=== PATIENT | female | born 1985 | race Caucasian/White ===

== ENCOUNTER 2019-05-14 09:53 | Outpatient (CLI) | payer OTHER, SELFPAY ==
--- NOTE | 2019-05-14 10:04 | MM_ITS ---
WS: [id number] DIAGNOSTIC BILATERAL DIGITAL MAMMOGRAM WITH CAD RIGHT breast ultrasound, limited HISTORY: RT BREAST LUMP 5 O'CLOCK COMPARISON: 04/26/2018 and 02/16/2017 TECHNIQUE: Bilateral craniocaudad, mediolateral oblique, and mediolateral views are submitted. Spot c ompression RIGHT CC. Computer aided detection utilized. Breast composition: There are scattered areas of fibroglandular density. Stable mass in the medial RI GHT breast. There is a lucent notch suggesting this may be a lymph node. Mass is stable in size since 02/16/2017. No additional suspicious findings. RIGHT breast ultrasound, limited. Ultrasound directed to the 4-5 o'clock axis. There is a hypoechoic mass with a central notch measurin g 1.4 x 0.6 cm. Likely representing a lymph node or benign fibroadenoma. No increase in size. MM/[id number] IMPRESSION: BI-RADS: 2-Benign FOLLOW UP: Age 41 Long-term stability of the mass in the medial RIGHT breast. Favor this is proba monserrat a lymph node.
--- NOTE | 2019-05-14 10:36 | US_ITS ---
WS: [id number] DIAGNOSTIC BILATERAL DIGITAL MAMMOGRAM WITH CAD RIGHT breast ultrasound, limited HISTORY: RT BREAST LUMP 5 O'CLOCK COMPARISON: 04/26/2018 and 02/16/2017 TECHNIQUE: Bilateral craniocaudad, mediolateral oblique, and mediolateral views are submitted. Spot c ompression RIGHT CC. Computer aided detection utilized. Breast composition: There are scattered areas of fibroglandular density. Stable mass in the medial RI GHT breast. There is a lucent notch suggesting this may be a lymph node. Mass is stable in size since 02/16/2017. No additional suspicious findings. RIGHT breast ultrasound, limited. Ultrasound directed to the 4-5 o'clock axis. There is a hypoechoic mass with a central notch measurin g 1.4 x 0.6 cm. Likely representing a lymph node or benign fibroadenoma. No increase in size. US/US breast RT limited* [id number] IMPRESSION: BI-RADS: 2-Benign FOLLOW UP: Age 41 Long-term stability of the mass in the medial RIGHT breast. Favor this is proba monserrat a lymph node.
== END 2019-05-14 09:54 | disposition home or self-care (01) ==
LOC: RADSHAW 09:56
PROVIDERS: Family Provider Family Medicine; PCP Family Medicine; Visit Provider Family Medicine
DX: N63.14 Unspecified lump in the right breast, lower inner quadrant (principal)
CPT/HCPCS: 76642; 77066

== ENCOUNTER 2020-05-15 10:43 | Outpatient (CLI) | payer OTHER, SELFPAY ==
--- NOTE | 2020-05-15 10:48 | MM_ITS ---
WS: [id number] BILATERAL SCREENING DIGITAL MAMMOGRAM WITH CAD HISTORY: SCREENING COMPARISON: 05/14/2019, 04/26/2018 and 02/16/2017 Bilateral CC and MLO views submitted. Computer aided detection analyzed. Breast composition: There are scattered areas of fibroglandular density. No suspicious masses, microc alcifications or architectural distortion. Stable 15 mm nodule in the RIGHT breast near 5:00. No inte rval increase in size since 2017. MM/[id number] IMPRESSION: BI-RADS: 2-Benign FOLLOW UP: 1 Year Follow-up
== END 2020-05-15 10:44 | disposition home or self-care (01) ==
LOC: RADSHAW 10:46
PROVIDERS: PCP Family Medicine; Visit Provider Nurse Practitioner Family
DX: Z12.31 Encounter for screening mammogram for malignant neoplasm of breast (principal)
CPT/HCPCS: 77067

== ENCOUNTER → 2021-09-20 11:54 | Outpatient (BNVA) | payer OTHER, SELFPAY | PROVIDERS: PCP Family Medicine; Visit Provider Registered Nurse Neonatal Intensive Care | DX: N39.0 Urinary tract infection, site not specified (principal) | CPT/HCPCS: 81000 ==

== ENCOUNTER → 2021-09-26 14:07 | Outpatient (BNVA) | payer OTHER, SELFPAY | PROVIDERS: PCP Family Medicine; Visit Provider Family Medicine Adult Medicine | DX: N39.0 Urinary tract infection, site not specified (principal) | CPT/HCPCS: 87086 ==

== ENCOUNTER 2022-04-16 13:36 | Outpatient (CLI) | payer OTHER, SELFPAY ==
--- NOTE | 2022-04-16 14:13 | ECG_ITS ---
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 Measurements Intervals [place] Rate: 107 P: 56 WY: 148 QRS: -3 QRSD: 94 T: 31 QT: 344 QTc: 459 Interpretive Statements SINUS TACHYCARDIA POSSIBLE ANTERIOR MYOCARDIAL INFARCTION , PROBABLY OLD [30 ms Q WAVE IN V3/V4, OR R < 0.2 mV IN V4] No previous ECG available for comparison Electronically Signed On 04-16-2022 14:40:44 PYROGLAZER by Raheel Au M.D. [email or web address] daughters medical centerWasatch Microfluidicsholmes county [facility].[employer]/store/NU/[id number] escoto
== END 2022-04-16 13:37 | disposition home or self-care (01) ==
LOC: RAD 13:38
PROVIDERS: PCP Family Medicine; Visit Provider Family Medicine
DX: R07.9 Chest pain, unspecified (principal); R00.0 Tachycardia, unspecified
CPT/HCPCS: 93005

== ENCOUNTER 2022-04-21 09:04 | Outpatient (CLI) | payer OTHER, SELFPAY ==
--- NOTE | 2022-04-21 | US_ITS ---
WS: [id number] RIGHT UPPER QUADRANT ULTRASOUND HISTORY: EPIGASTRIC PAIN COMPARISON: CT abdomen 04/19/2018 Liver: 19.0 cm in length. Moderately enlarged liver. Mild diffuse hepatic steatosis. The entire liver is not well visualized due to body habitus. No mass identified. No bile duct dilatation Portal Vein: Not visualized well. Gallbladder: Poorly visualized gallbladder due to body habitus. There are low level echoes within the gallbladder which may be artifact. No stones or shadowing. The gallbladder wall is normal. No Hoang 's sign during this examination. CBD: 0.7 cm, common bile duct is very mildly dilated. Only a very small portion of the common bile du ct is visualized. Common bile duct at the pancreatic head is not visualized. Pancreas: Limited. Pancreatic head and tail of the pancreas are not well visualized. Right kidney: 11.8 cm in length. Normal size and echogenicity. No hydronephrosis or mass. Aorta and IVC: Unremarkable abdominal aorta and IVC. No ascites. US/US abdomen limited [id number] IMPRESSION: 1. Quality of this examination is moderately limited by body habitus. 2. Low-level echoes in the gallbladder may be artifact related to body habitus or sludge. No stones or shadowing identified. 3. Mildly dilated common bile duct. Only a small portion of the common bile du ct is identified. Reasonably mild common bile duct dilatation is to be evaluate d. Common bile duct is normal caliber on the prior CT from 2019. Recommend foll ow-up CT abdomen and pelvis with IV and oral contrast. This will help define th e pancreatic head better. MRCP may be of value also. 4. Moderate hepatomegaly and hepatic steatosis.
== END 2022-04-21 09:05 | disposition home or self-care (01) ==
LOC: RAD 09:04
PROVIDERS: PCP Family Medicine; Visit Provider Family Medicine
DX: R10.13 Epigastric pain (principal); K83.8 Other specified diseases of biliary tract; K76.0 Fatty (change of) liver, not elsewhere classified
CPT/HCPCS: 76705

== ENCOUNTER 2022-04-27 20:21 | Observation (INO) | payer OTHER, SELFPAY ==
--- NOTE | 2022-04-27 20:24 | ECG_ITS ---
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 Measurements Intervals [place] Rate: 107 P: 66 WV: 157 QRS: 2 QRSD: 86 T: 40 QT: 332 QTc: 444 Interpretive Statements SINUS TACHYCARDIA LOW QRS VOLTAGE IN PRECORDIAL LEADS [QRS DEFLECTION < 1.0 mV IN CHEST LEADS] POSSIBLE ANTERIOR MYOCARDIAL INFARCTION , PROBABLY OLD [30 ms Q WAVE IN V3/V4, OR R < 0.2 mV IN V4] Compared to ECG 04/16/2022 14:01:53 Low QRS voltage now present Myocardial infarct finding still present Electronically Signed On 04-28-2022 1:51:59 OIL SPREADER OPERATOR by Camille Gamboa M.D. [email or web address].[employer]/store/NU/[id number] f
--- NOTE | 2022-04-27 20:24 | XRR_ITS ---
PROCEDURE INFORMATION: Exam: XR Chest Exam date and time: 04/27/2022 8:34 PM Age: 37 years old Clinical indication: Left-sided and other: Epigastric left upper gastric pain; Additional info: Chest pain TECHNIQUE: Imaging protocol: Radiologic exam of the chest. Views: 1 view. COMPARISON: CT abdomen pelvis con [id number] 04/19/2018 1:41 AM FINDINGS: Lungs: Unremarkable. No consolidation. Pleural spaces: Unremarkable. No pleural effusion. No pneumothorax. Heart/Mediastinum: Unremarkable. No cardiomegaly. Bones/joints: No acute findings. XR/XR chest 1V portable [id number] IMPRESSION: No acute findings.
[2022-04-27 20:31] VITALS: BP 174/120; PULSE 107; RESP 20; TEMP 36.7; O2SAT 100; BMI 48.6
[2022-04-27 20:39] LABS: Basophils # 0.1 10^3/uL (0.0-0.1); Basophils % 0.4 %; Eosinophils # 0.3 10^3/uL (0.0-0.8); Eosinophils % 2.1 %; Hematocrit 43.1 % (37.0-47.0); Hemoglobin 14.4 g/dL (11.5-15.3); Lymphocytes # 4.4 10^3/uL (0.8-4.8); Mean Corpuscular HGB Conc 33.4 g/dL (30.0-36.0); Mean Corpuscular Volume 86.7 fl (81-99); Mean Platelet Volume 9.1 fL (7.4-10.4); Monocytes # 0.9 10^3/uL (0.2-0.9); Monocytes % 6.2 %; Neutrophils # 8.12 10^3/uL (1.8-7.7); Nucleated Red Blood Cells % 0 %; Platelet Count 371 10^3/cmm (130-400); Red Blood Count 4.97 10^6/uL (4.1-5.3); Red Cell Distribution Width 12.1 % (12.1-15.1); White Blood Count 13.8 10^3/uL (4.0-10.0)
--- NOTE | 2022-04-27 20:41 | CTR_ITS ---
PROCEDURE INFORMATION: Exam: CTA Chest With Contrast Exam date and time: 04/27/2022 9:06 PM Age: 37 years old Clinical indication: Abdominal pain; Acute; Right-sided; Prior surgery; Surgery date: 6+ months; Surgery type: Appx; Additional info: Cp/abd pain TECHNIQUE: Imaging protocol: Computed tomographic angiography of the chest with contrast. 3D rendering (Not supervised by radiologist): MIP and/or 3D reconstructed images were created by the technologist. Radiation optimization: All CT scans at this facility use at least one of these dose optimization techniques: automated exposure control; mA and/or kV adjustment per patient size (includes targeted exams where dose is matched to clinical indication); or iterative reconstruction. Contrast material: OMNIPAQUE 350; Contrast volume: 95 ml; Contrast route: INTRAVENOUS (IV); Other protocol: This patient has received 0 known CTs and 0 known cardiac nuclear medicine studies in the 12 months prior to the current study. COMPARISON: CR (CHEST, ) 04/27/2022 8:34 PM and abdomen pelvic CT from March 2018 RADIATION DOSE METRICS: Total DLP (mGy-cm): 1986.58 FINDINGS: Pulmonary arteries: Normal. No pulmonary emboli. Aorta: No aortic aneurysm. No aortic dissection. Lungs: Peripheral mild scarring suggested in the right lung. No consolidation. Pleural spaces: No pneumothorax. No pleural effusion. Heart: No cardiomegaly. No pericardial effusion. Coronary arteries: Mild coronary arterial calcifications are noted. Lymph nodes: No enlarged lymph nodes. Bones/joints: Surgical changes are suggested at right glenoid. No acute bony findings. Soft tissues: Lesion at lower right breast is unchanged dating back at least to 2019. PROCEDURE INFORMATION: Exam: CT Abdomen And Pelvis With Contrast Exam date and time: 04/27/2022 9:06 PM Age: 37 years old Clinical indication: Abdominal pain; Acute; Right-sided; Prior surgery; Surgery date: 6+ months; Surgery type: Appx; Additional info: Cp/abd pain TECHNIQUE: Imaging protocol: Computed tomography of the abdomen and pelvis with contrast. Radiation optimization: All CT scans at this facility use at least one of these dose optimization techniques: automated exposure control; mA and/or kV adjustment per patient size (includes targeted exams where dose is matched to clinical indication); or iterative reconstruction. Contrast material: OMNIPAQUE 350; Contrast volume: 95 ml; Contrast route: INTRAVENOUS (IV); Other protocol: This patient has received 0 known CTs and 0 known cardiac nuclear medicine studies in the 12 months prior to the current study. COMPARISON: CT abdomen pelvis wo con [id number] 04/19/2018 1:41 AM RADIATION DOSE METRICS: Total DLP (mGy-cm): 1986.58 FINDINGS: Tubes, catheters and devices: Circular device suggested within the vagina can be correlated with device placement history. Liver: Normal. No mass. Gallbladder and bile ducts: Gallbladder wall thickening is suspected. No evident calcified stones. Pancreas: Normal. No ductal dilation. Spleen: Normal. No splenomegaly. Adrenal glands: Normal. No mass. Kidneys and ureters: Normal. No hydronephrosis. Stomach and bowel: Unremarkable. No obstruction. No mucosal thickening. Appendix: No evidence of appendicitis. Intraperitoneal space: Unremarkable. No free air. No significant fluid collection. Vasculature: Unremarkable. No abdominal aortic aneurysm. Lymph nodes: Unremarkable. No enlarged lymph nodes. Urinary bladder: Unremarkable as visualized. Reproductive: Unremarkable as visualized. Bones/joints: No acute fracture. Soft tissues: Small fatty umbilical hernia. CT/CT angio chest w abd pel w con IMPRESSION: No acute findings. IMPRESSION: Findings suggestive of some thickening of the gallbladder wall ; ultrasonography may be helpful in further evaluation. Additional details as above.
[2022-04-27 20:44] VITALS: BP 150/89; PULSE 104; RESP 19; O2SAT 98
--- NOTE | 2022-04-27 20:52 | W.ED.CHESTPA ---
HPI - Chest Pain General: Chief Complaint: Chest Pain Stated Complaint: chest pain, left upper quadrant pain Time Seen by Provider: 04/27/22 20:23 Source: patient Mode of arrival: ambulatory Limitations: no limitations History of Present Illness: 37-year-old female has been having some epigastric abdominal pain over the last 3 to 4 weeks she had an ultrasound follow-up with the surgeon and is trying to get a HIDA scan scheduled states that tonight though roughly 4 to 5 hours ago started having left upper quadrant pain along with some chest pains with dyspnea. She states pain is sharp in nature rates it as 7 out of 10 denies any worsening proving factors denies any fevers denies any vomiting or diarrhea. Associated symptoms: Reports abdominal pain; Deny dyspnea or fever(s) Review of Systems Const: Denies: fever(s), chills, body aches or change in appetite Eyes: Denies: blurry vision or eye discomfort ENMT: Denies: throat pain or dental pain Card: Reports: chest pain Resp: Denies: dyspnea GI: Reports: abdominal pain : Denies: dysuria Musc: Denies: neck pain or back pain Skin/Breast: Denies: rash Neuro: Denies: headache(s) Psych: Denies: depression Hasmukh/Lymph: Denies: easy bruising All/Imm: Denies: urticaria PFSH ED PFSH: Medical History Factor 5 Leiden mutation, heterozygous Hypertension Hypertension Obesity Surgical History History of laparoscopic appendectomy open appy 1998 History of shoulder surgery Family History Other Factor 5 Leiden mutation, heterozygous Hyperlipidemia Hypertension Denies family history of CAD (coronary artery disease) Cancer Social History Smoking and tobacco status: never smoked Second hand smoke exposure: No Alcohol intake: never Physical Exam Const: COMMON NORMALS: no acute distress, patient oriented x3 and healthy appearing HENMT: COMMON NORMALS: normocephalic and atraumatic HEAD & SCALP: normocephalic and atraumatic Eye: COMMON NORMALS: Equal, round and reactive pupils present and EOMs intact bilaterally PUPIL: Yes Equal, round and reactive pupils present Neck/C-Spine: COMMON NORMALS: full ROM and supple Chest: COMMONS NORMALS: normal inspection of the chest and normal palpation of entire chest wall Resp: COMMON NORMALS: normal respiratory effort, No retractions, No use of accessory muscles and clear to auscultation bilaterally AUSCULTATION: clear to auscultation bilaterally Cardio: COMMON NORMALS: regular rate, regular rhythm and No murmurs present (Cardio) RATE: regular rate RHYTHM: regular rhythm GI: COMMON NORMALS: Normal to inspection, nondistended, normoactive bowel sounds present, Soft to palpation and no masses PALPATION: Yes Soft to palpation and Yes Tenderness to palpation present (GI) Details: RUQ Extremity: COMMON NORMALS: normal to inspection and full ROM Neuro: COMMON NORMALS: patient oriented x3, moves all extremities and no focal motor deficits Psych: COMMON NORMALS: mental status grossly normal, Normal thought process present and cooperative THOUGHT PROCESS: Normal thought process present Skin: COMMON NORMALS: no rashes or lesions noted and no wounds GENERAL SKIN EXAM: no rashes or lesions noted Course Vital Signs: Vital signs: Vital Signs Temperature 98.0 F 04/27/22 20:31 Pulse Rate 101 H 04/27/22 21:31 Respiratory Rate 22 H 04/27/22 21:31 Blood Pressure 141/98 04/27/22 21:31 Pulse Oximetry 98 04/27/22 21:31 Oxygen Delivery Me thod 04/27/22 21:31 MDM - Chest Pain Medical Decision Making Patient presents with abdominal pain CT scan did show thickened gallbladder wall she does have an elevated white count with tenderness consistent with a cholecystitis I did speak to her surgeon that she has been following with will admit at this time on IV antibiotics for plan for cholecystectomy in the morning. Lab Data 04/27/22 20:29 04/27/22 20:29 Radiology Impressions Chest X-Ray 04/27/22 20:24 IMPRESSION: No acute findings. Chest/Abdomen/Pelvis CT 04/27/22 20:41 IMPRESSION: No acute findings. IMPRESSION: Findings suggestive of some thickening of the gallbladder wall ; ultrasonography may be helpful in further evaluation. Additional details as above. Laboratory Results WBC 13.8 10^3/uL (4.0-10.0) H 04/27/22 20: RBC 4.97 10^6/uL (4.1-5.3) 04/27/22 20: Hgb 14.4 g/dL (11.5-15.3) 04/27/22 20: Hct 43.1 % (37.0-47.0) 04/27/22: MCV 86.7 fl (81-99) 04/27/22 20: MCH 29.0 pg (28.0-34.0) 04/27/22: MCHC 33.4 g/dL (30.0-36.0) 04/27/22: RDW 12.1 % (12.1-15.1) 04/27/22: Plt Count 371 10^3/cmm (130-400) 04/27/22: MPV 9.1 fL (7.4-10.4) 04/27/22: Neut % (Auto) 59.0 % 04/27/22: Lymph % (Auto) 32.0 % 04/27/22: Spink % (Auto) 6.2 % 04/27/22: Eos % (Auto) 2.1 % 04/27/22: Baso % (Auto) 0.4 % 04/27/22: Neut # (Auto) 8.12 10^3/uL (1.8-7.7) H 04/27/22: Lymph # (Auto) 4.4 10^3/uL (0.8-4.8) 04/27/22: Spink # (Auto) 0.9 10^3/uL (0.2-0.9) 04/27/22: Eos # (Auto) 0.3 10^3/uL (0.0-0.8) 04/27/22: Baso # (Auto) 0.1 10^3/uL (0.0-0.1) 04/27/22: Nucleated RBC % (auto) 0 % 04/27/22: Nucleated RBCs # 0.0 /100WBC 01/31/23 20:29 Sodium 140 mmol/L (136-145) 04/27/22 20:29 Potassium 3.9 mmol/L (3.5-5.1) 04/27/22 20: Chloride 105 mmol/L (98-107) 04/27/22 20: Carbon Dioxide 24 mmol/L (22-29) 04/27/22 20: Anion Gap 14.9 (5-19) 04/27/22 20: BUN 11 mg/dL (6-20) 04/27/22 20: Creatinine 0.7 mg/dL (0.5-0.9) 04/27/22 20: GFR Calculation 94.7 mL/min (90-130) 04/27/22 20: Glucose 110 mg/dL (65-115) 04/27/22 20: Calculated Osmolality 290 mOsm/kg (285-295) 04/27/22 20: Calcium 9.4 mg/dL (8.5-10.5) 04/27/22 20: Total Bilirubin 0.3 mg/dL (0.15-1.2) 04/27/22 20: AST 12 U/L (0-32) 04/27/22 20: ALT 13 U/L (0-33) 04/27/22 20: Alkaline Phosphatase 84 U/L (35-105) 04/27/22 20:29 Troponin T Baseline 6 ng/L (0-10) 04/27/22 20: Troponin T 120 Minute 6.00 ng/L (0-10) 04/27/22 22:14 Delta Troponin T 0 ABS# (0-10) 04/27/22 22:14 Total Protein 7.3 g/dL (6.6-8.7) 04/27/22 20: Albumin 4.0 g/dL (3.5-5.2) 04/27/22 20: Globulin 3.3 g/dL (1.3-4.6) 04/27/22 20: Lipase 35 U/L (13-60) 04/27/22 20:29 HCG, Qual Negative (Negative) 04/27/22 20:29 Urine Color Yellow (Yellow) 04/27/22 21:25 Urine Appearance Clear (CLEAR) 04/27/22 21:25 Urine pH 5 (5-7) 04/27/22 21:25 Ur Specific [place] 1.020 (1.005-1.030) 04/27/22 21:25 Urine Protein Neg (Negative) 04/27/22 21:25 Urine Glucose (UA) Norm (Normal) 04/27/22 21:25 Urine Ketones 1+ (Negative) H 04/27/22 21:25 Urine Blood Neg (Negative) 04/27/22 21:25 Urine Nitrate Negative (Negative) 04/27/22 21:25 Urine Bilirubin Neg (Negative) 04/27/22 21:25 Urine Urobilinogen Norm mg/dL (Negative) 04/27/22 21:25 Ur Leukocyte Esterase 1+ (Negative) H 04/27/22 21:25 Urine RBC 0-4 /hpf (0-2) H 04/27/22 21:25 Urine WBC 5-10 /hpf (0-5) H 04/27/22 21:25 Ur Squamous Epith Cells 5-10 /hpf (0-5) H 04/27/22 21:25 Amorphous Sediment Not Reportable 04/27/22 21:25 Urine Bacteria 1+ /hpf (NONE) H 04/27/22 21:25 Hyaline Casts 0-4 /lpf H 04/27/22 21:25 Discharge Plan Discharge Patient Disposition: Admitted As Inpatient Admit Provider: Melo Salinas Clinical Impression: Cholecystitis Condition: Stable Coding Level of Care Code ED Printing Table Hand for Shanig Fwd Exam Comprehensive
[2022-04-27 21:02] LABS: Alanine Aminotransferase 13 U/L (0-33); Alkaline Phosphatase 84 U/L (35-105); Anion Gap 14.9 (5-19); Aspartate Amino Transferase 12 U/L (0-32); Blood Urea Nitrogen 11 mg/dL (6-20); Calcium 9.4 mg/dL (8.5-10.5); Carbon Dioxide 24 mmol/L (22-29); Chloride 105 mmol/L (98-107); Globulin 3.3 g/dL (1.3-4.6); Glomerular Filtration Rate 94.7 mL/min (90-130); Glucose 110 mg/dL (65-115); Lipase 35 U/L (13-60); Osmolality Calculated 290 mOsm/kg (285-295); Potassium 3.9 mmol/L (3.5-5.1); Sodium 140 mmol/L (136-145); Total Bilirubin 0.3 mg/dL (0.15-1.2); Total Protein 7.3 g/dL (6.6-8.7)
[2022-04-27 21:04] LABS: Troponin(5th) Baseline 6 ng/L (0-10)
[2022-04-27 21:21] LABS: HCG, Serum Qual Negative (Negative)
[2022-04-27] MEDS: ondansetron 2 mg/ML SDV 2 mL 4 MG IVP (21:23)
[2022-04-27 21:24] VITALS: RESP 21
[2022-04-27] MEDS: HYDROmorphone 1 mg/mL INJ 1 mL IVP (21:24)
[2022-04-27 21:31] VITALS: BP 141/98; PULSE 101; RESP 22; O2SAT 98
[2022-04-27] MEDS: iohexol 350 mg/mL 500 mL Btl (per mL) IV (21:33)
[2022-04-27 21:58] LABS: Urine Appearance Clear (CLEAR); Urine Color Yellow (Yellow); pH Urine 5 (5-7)
[2022-04-27 21:59] LABS: Add Urine Microscopic? YES; Bilirubin Urine Neg (Negative); Blood Urine Neg (Negative); Glucose Urine UA Norm (Normal); Ketones Urine 1+ (Negative); Leukocyte Esterase Urine 1+ (Negative); Nitrate Urine Negative (Negative); Protein Urine Neg (Negative); Urobilinogen Urine Norm (Negative)
[2022-04-27 22:11] LABS: Add Urine Culture? No; Bacteria Urine 1+ /hpf; Hyaline Casts Urine 0-4 /lpf; RBC Urine 0-4 /hpf (0-2)
[2022-04-27] MEDS: piperacillin-tazobactam 3.375 GM in sodium chloride 0.9% (plus) 50 ML IV (22:42)
[2022-04-27 23:23] LABS: Troponin 5 2HR Delta 0 ABS# (0-10)
[2022-04-27 23:30] VITALS: BP 119/85; PULSE 90; RESP 18; TEMP 36.7; O2SAT 96
--- NOTE | 2022-04-27 23:37 | ECG_ITS ---
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 Measurements Intervals [place] Rate: 86 P: -15 NE: 118 QRS: -23 QRSD: 90 T: -25 QT: 358 QTc: 429 Interpretive Statements SINUS RHYTHM WITH SHORT NE INTERVAL POSSIBLE ANTERIOR MYOCARDIAL INFARCTION , OF INDETERMINATE AGE [30 ms Q WAVE IN V3/V4, OR R < 0.2 mV IN V4] Compared to ECG 04/27/2022 20:27:41 Short NE interval now present Sinus tachycardia no longer present Myocardial infarct finding still present Electronically Signed On 04-28-2022 1:57:08 HYDROMETEOROLOGY TEACHER by Camille Gamboa M.D. [id number]
[2022-04-27] MEDS: sodium chloride 0.9% 1,000 ML 100 ML IV (23:43)
[2022-04-28] VITALS (21 sets, daily range): BP systolic 108–185; BP diastolic 71–99; PULSE 80–105; RESP 15–22; TEMP 36.1–36.9; O2SAT 91–100
--- NOTE | 2022-04-28 02:24 | ECG_ITS ---
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 Measurements Intervals [place] Rate: 89 P: 148 WV: 159 QRS: -23 QRSD: 93 T: 120 QT: 374 QTc: 455 Interpretive Statements ECTOPIC ATRIAL RHYTHM POSSIBLE LEFT ATRIAL ENLARGEMENT [-0.1mV P-WAVE IN V1/V2] LOW QRS VOLTAGE IN PRECORDIAL LEADS [QRS DEFLECTION < 1.0 mV IN CHEST LEADS] POSSIBLE ANTERIOR MYOCARDIAL INFARCTION , PROBABLY OLD [30 ms Q WAVE IN V3/V4, OR R < 0.2 mV IN V4] Compared to ECG 04/27/2022 23:37:53 Ectopic atrial rhythm now present Low QRS voltage now present Sinus rhythm no longer present Short [place] interval no longer present Myocardial infarct finding still present Electronically Signed On 04-28-2022 16:33:47 YARROW GATHERER by Raheel Au M.D. [id number]
[2022-04-28 04:01] LABS: Troponin 5 6HR Delta 0 ng/L (0-12)
[2022-04-28] MEDS: piperacillin-tazobactam 3.375 GM in sodium chloride 0.9% (plus) 50 ML IV (04:41)
--- NOTE | 2022-04-28 09:52 | PM.HP ---
Providers/Chief Complaint Admitting Physician: Melo Salinas DO Primary Care Provider: Arvind Rogers MD Chief Complaint: chest pain, left upper quadrant pain History of Present Illness Christiana Wilson is a 37 year old female who presented to the hospital with increased upper abdominal pain. For the last month she has been having left upper quadrant and right upper quadrant cramping abdominal pain that radiates to her back after eating. This is associated with nausea and sometimes emesis. She gets diarrhea at times but denies any constipation. Denies any hematochezia and/or melena. CT abdomen showed thickened gallbladder wall Review of Systems General: Reports: 10 or more systems reviewed and unremarkable except in HPI and below Medications/Allergies Home Medications Medication Instructions Recorded Confirmed Last Taken Type olmesartan 20 mg tablet 20 mg PO DAILY 04/27/22 04/27/22 Unknown History semaglutide 0.25 mg or 0.5 mg (2 1 mg SUBCUT .weekly 04/27/22 04/27/22 Unknown History mg/1.5 mL) subcutaneous pen injector (Ozempic) Allergies Allergy/AdvReac Type Severity Reaction Status Date / Time meperidine [From Demerol] Allergy Intermediate ADR-Agitate Verified 04/21/22 10:22 d PFSH Acute PFSH: Medical History Factor 5 Leiden mutation, heterozygous Hypertension Hypertension Obesity Surgical History History of laparoscopic appendectomy open appy 1998 History of shoulder surgery Family History Other Factor 5 Leiden mutation, heterozygous Hyperlipidemia Hypertension Denies family history of CAD (coronary artery disease) Cancer Social History Smoking and tobacco status: never smoked Second hand smoke exposure: No Alcohol intake: never Vitals/I&O/Wt Last Vital Signs Temp 98.2 F 04/28/22 09:49 Pulse 100 04/28/22 09:49 Resp 18 04/28/22 09:49 BP 110/75 04/28/22 07:16 Pulse Ox 99 04/28/22 09:49 O2 Del Method 04/28/22 09:49 04/27/22 04/28/2204/28/23 22:59 06:59 14:59 Intake Total 100 / 100 Balance 100 / 100 Weight last 48 hrs Weight 320 lb Physical Exam Narrative: General : Patient is well developed , no acute distress, oriented x3 Head : Normal cephalic, a-traumatic. Ears : Pinnae and external canal are normal. Hearing is normal. Eyes : PERRLA, Sclera and injection are normal. No conjunctival discharge. Nose : Mucous membranes are without erythema. Throat : buccal mucosa is normal, gums are without significant recession or hypertrophy. Lungs : Equal chest rise bilaterally, no use of accessory muscles, trachea is midline. Cor : Rate and rhythm are normal. Abdomen : Soft, nondistended, tender palpation right upper quadrant, negative Hoang's, no g/r/m Extremities : No edema, no cyanosis or clubbing, dorsalis pedis pulses are present bilaterally, non-tender to palpation of calves. Upper extremities are normal bilaterally. Back : non-tender to palpation, no CVA tenderness. Neuro : CN II - XII intact, Upper and lower extremities have equal and full strength Data 04/27/22 20:29 04/27/22 20:29 A&P Assessment and plan (1) Cholecystitis: Plan Laparoscopic cholecystectomy The risks and benefits of the procedure, including but not limited to, bleeding, infection, scar, numbness, pain, damage to surrounding structures, damage to common bile duct requiring additional surgery, conversion to an open procedure, were explained to the patient. He is understanding of the risks and wishes to proceed. Attestations Medical Necessity Statement*: Patient will require 1 night in the hospital following cholecystectomy Coding Level of Care Code Acute Code for [facility] Diagnoses Cholecystitis K81.9
[2022-04-28] MEDS: sodium chloride 0.9% 1,000 ML 30 ML IV (10:15)
[2022-04-28] MEDS: ondansetron 2 mg/ML SDV 2 mL 4 MG IVP ×2 (10:16→11:46)
[2022-04-28] MEDS: scopolamine 1.5 Patch 1 PATCH TRANSDERMA (10:16)
[2022-04-28] MEDS: diphenhydrAMINE 50 mg/mL SDV 1mL 12.5 MG IVP ×2 (10:17→11:43)
--- NOTE | 2022-04-28 11:04 | SUR.OPER ---
UPDATED SPOUSE VIA CELL PHONE [phone]
--- NOTE | 2022-04-28 11:11 | ANES.PREANE2 ---
Pre-Anesthetic Assessment Height/Weight: Height 1.73 m Weight 145.15 kg Temp Pulse Resp BP Pulse Ox O2 Del Method 98.2 F 100 18 110/75 99 04/28/22 09:49 04/28/22 09:49 04/28/22 09:49 04/28/22 07:16 04/28/22 09:49 04/28/22 09:49 Operation Date: 04/28/22 10:00 Proposed Procedures p Laparoscopic Cholecystectomy(Not Applicable) - Melo Salinas DO Familial anesthetic complications: PONV Was Beta Maylin taken within 24 hours: N/A Was Clonidine taken within 24 hours: N/A Last intake: Intake Last Liquid Date 04/27/22 Last Liquid Time 23:55 Last Solid Date 04/27/22 Last Solid Time 14:00 Social No alcohol and No tobacco Exam alert, oriented x 3, clear to auscultation bilaterally and regular rate & rhythm Airway Submandibular: within normal limits Cervical ROM: within normal limits Mallampati: Class II Dentition: full CV/HEM Hypertension Metabolic Morbid Obesity Anesthetic Plan ASA status: 2 Anesthesia: General Medications/Allergies Home Medications Medication Instructions Recorded Confirmed Last Taken Type olmesartan 20 mg tablet 20 mg PO DAILY 04/27/22 04/27/22 Unknown History semaglutide 0.25 mg or 0.5 mg (2 1 mg SUBCUT .weekly 04/27/22 04/27/22 Unknown History mg/1.5 mL) subcutaneous pen injector (Ozempic) Allergies Allergy/AdvReac Type Severity Reaction Status Date / Time meperidine [From Demerol] Allergy Intermediate ADR-Agitate Verified 04/21/22 10:22 d Current Medications Generic Name Dose Route Start Last Admin Trade Name Freq PRN Reason Stop Dose Admin Diphenhydramine HCl 12.5 mg 04/28/22 09:42 04/28/22 10:17 Diphenhydramine 50 Mg/Ml Sdv 1ml IVP 12.5 mg ONCE PRN Administration PONV Sodium Chloride 1,000 mls @ 100 mls/hr 04/27/22 23:18 04/27/22 23:43 Sodium Chloride 0.9% IV 100 mls/hr .Q10H JAZZY Administration Piperacillin Sod/Tazobactam 50 mls @ 100 mls/hr 04/28/22 05:00 04/28/22 05:32 Sod 3.375 gm/ Sodium Chloride IV Infused Q6H JAZZY Infusion Protocol Sodium Chloride 1,000 mls @ 30 mls/hr 04/28/22 09:45 04/28/22 10:15 Sodium Chloride 0.9% IV 04/29/22 09:44 30 mls/hr .Q24H JAZZY Administration Ondansetron HCl 4 mg 04/28/22 09:42 04/28/22 10:16 Ondansetron 2 Mg/Ml Sdv 2 Ml IVP 4 mg ONCE PRN Administration NAUSEA AND VOMITING PFSH Anesthesia Medical History Factor 5 Leiden mutation, heterozygous Hypertension Hypertension Obesity Surgical History History of laparoscopic appendectomy open appy 1998 History of shoulder surgery Family History Other Factor 5 Leiden mutation, heterozygous Hyperlipidemia Hypertension Denies family history of CAD (coronary artery disease) Cancer Social History Smoking and tobacco status: never smoked Second hand smoke exposure: No Alcohol intake: never Data Anesthesia 04/27/22 20:29 04/27/22 20:29 Short CBC 04/27/22 Range/Units 20:29 WBC 13.8 H (4.0-10.0) 10^3/uL Hgb 14.4 (11.5-15.3) g/dL Hct 43.1 (37.0-47.0) % MCV 86.7 (81-99) fl Plt Count 371 (130-400) 10^3/cmm Neut % (Auto) 59.0 % Neut # (Auto) 8.12 H (1.8-7.7) 10^3/uL BMP 04/27/22 20:29 Sodium 140 Potassium 3.9 Chloride 105 Carbon Dioxide 24 BUN 11 Creatinine 0.7 Glucose 110 Calcium 9.4 Cardiac Enzymes 04/27/22 04/27/22 04/28/22 Range/Units 20:29 22:14 02:07 Troponin T Baseline 6 (0-10) ng/L Troponin T 120 Minute 6.00 (0-10) ng/L Delta Troponin T 0 (0-10) ABS# Troponin T Hi Sens 6Hr 6.00 (0-10) ng/L Troponin T Hi Sens 6Hr Delta 0 (0-12) ng/L Liver Function 04/27/22 Range/Units 20:29 Total Bilirubin 0.3 (0.15-1.2) mg/dL AST 12 (0-32) U/L ALT 13 (0-33) U/L Alkaline Phosphatase 84 (35-105) U/L Albumin 4.0 (3.5-5.2) g/dL Urine 04/27/22 Range/Units 21:25 Urine Color Yellow (Yellow) Urine Appearance Clear (CLEAR) Urine pH 5 (5-7) Ur Specific [place] 1.020 (1.005-1.030) Urine Protein Neg (Negative) Urine Glucose (UA) Norm (Normal) Urine Ketones 1+ H (Negative) Urine Nitrate Negative (Negative) Urine Bilirubin Neg (Negative) Ur Leukocyte Esterase 1+ H (Negative) Urine RBC 0-4 H (0-2) /hpf Urine WBC 5-10 H (0-5) /hpf Cardiac Studies: No Data to Display
--- NOTE | 2022-04-28 11:17 | P.OP_ITS ---
Operative Report Date of procedure: April 28, 2022 Pre-op diagnosis: Acute cholecystitis Post-op diagnosis: same Procedure done: Laparoscopic cholecystectomy Specimens removed/disposition: Gallbladder Surgeon: Dr. Melo Salinas DO Anesthesia: General Complications: None apparent Brief History: This a very pleasant 37-year-old female who was being worked up for gallbladder dysfunction when she presented to the ER with an acute cholecystitis. Laparoscopic cholecystectomy was indicated. The risk and benefits were explained and documented. Procedure: Patient was wheeled into the operative room and placed on the OR table in a supine position. Abdomen was inspected prepped and draped in usual sterile fashion. Time-out was performed and all present were in agreement. A 15 blade scalp was used to make a stab incision in the left upper quadrant and intra- abdominal insufflation was achieved using a Veress needle. After localizing the tissue incisions were made and a 5 millimeter trocar was placed into the umbilicus as well as 2 in the right upper quadrant. A 12 millimeter trocar was placed in the epigastrium. Gallbladder was grasped and elevated. The triangle of Calot was carefully dissected using blunt dissection and electrocautery until the triangle of [place]ot clearly identified. The cystic duct was clipped proxpaty elaine and double clipped distally. The duct was then ligated proximally. The cystic artery was doubly clipped and ligated. The gallbladder was then removed from the liver bed using electrocautery. The gallbladder was removed from the abdomen using an Endo-Catch bag through the epigastric incision. The liver bed was inspected and no bleeding was seen. The abdomen was irrigated and suctioned. All ports removed. Skin was washed and dried. Incisions were closed with 3-0 and 4-O Vicryl in a subcuticular interrupted fashion. Skin glue was applied. Patient tolerated the procedure well.
[2022-04-28] MEDS: HYDROmorphone 1 mg/mL INJ 1 mL 0.5 MG IVP (11:41)
--- NOTE | 2022-04-28 14:09 | ANE.PACU2 ---
Inpatient post-anesthesia follow up: Airway intact: Yes Vital signs: Temperature 97.9 F Pulse Rate 92 Respiratory Rate 18 Blood Pressure 140/83 Pulse Oximetry 96 Oxygen Delivery Me thod Room Air Oxygen Flow Rate 10 Fraction of Inspir ed Oxygen Hydration adequate: Yes Nausea and vomiting: No Pain level: 3 Mental status: Baseline
[2022-04-28] MEDS: HYDROcodone-acetaminophen 7.5-325 mg Tablet 1 TAB PO (15:45)
--- NOTE | 2022-04-28 16:59 | PM.DCS ---
Discharge Providers Date of Admission: 04/27/22 23:03 Date of Discharge: April 28, 2022 Attending Provider at Admission: Melo Salinas DO Attending Provider at Discharge: Melo Salinas DO Primary Care Provider: Arvind Rogers MD Diagnoses at Discharge Discharge Diagnosis (1) Cholecystitis: Status: Acute Reason for Visit Reason for Visit: chest pain, left upper quadrant pain Hospital Course Hospital Course This very pleasant 37-year-old female who came in with abdominal pain. She was diagnosed with acute cholecystitis. She underwent laparoscopic cholecystectomy and was discharged home in good condition Physical Exam Narrative: General : Patient is well developed , no acute distress, oriented x3 Head : Normal cephalic, a-traumatic. Ears : Pinnae and external canal are normal. Hearing is normal. Eyes : PERRLA, Sclera and injection are normal. No conjunctival discharge. Nose : Mucous membranes are without erythema. Throat : buccal mucosa is normal, gums are without significant recession or hypertrophy. Lungs : Equal chest rise bilaterally, no use of accessory muscles, trachea is midline. Cor : Rate and rhythm are normal. Abdomen : Soft, ND, appropriately tender to palpation, no g/r/m Incisions intact without erythema or exudate Extremities : No edema, no cyanosis or clubbing, dorsalis pedis pulses are present bilaterally, non-tender to palpation of calves. Upper extremities are normal bilaterally. Back : non-tender to palpation, no CVA tenderness. Neuro : CN II - XII intact, Upper and lower extremities have equal and full strength Discharge Data Studies Completed and Pending Completed Studies During Hospitalization Category Date Time Status CTA chest CT abdomen pelvis [CT angio chest w abd pel w Cat Scan 04/27/22 20:41 Completed con] Stat XR chest 1V portable [id number] Stat Exams 04/27/22 20:24 Completed Pending at discharge Category Date Time Status Pathology: Surgical [PTH] Routine Pth 04/28/22 11:11 Received Radiology Impressions Chest X-Ray 04/27/22 20:24 IMPRESSION: No acute findings. Chest/Abdomen/Pelvis CT 04/27/22 20:41 IMPRESSION: No acute findings. IMPRESSION: Findings suggestive of some thickening of the gallbladder wall ; ultrasonography may be helpful in further evaluation. Additional details as above. Laboratory Results WBC 13.8 10^3/uL (4.0-10.0) H 04/27/22 20: RBC 4.97 10^6/uL (4.1-5.3) 04/27/22 20: Hgb 14.4 g/dL (11.5-15.3) 04/27/22 20: Hct 43.1 % (37.0-47.0) 04/27/22 20: MCV 86.7 fl (81-99) 04/27/22 20: MCH 29.0 pg (28.0-34.0) 04/27/22 20: MCHC 33.4 g/dL (30.0-36.0) 04/27/22: RDW 12.1 % (12.1-15.1) 04/27/22: Plt Count 371 10^3/cmm (130-400) 04/27/22 20: MPV 9.1 fL (7.4-10.4) 04/27/22 20: Neut % (Auto) 59.0 % 04/27/22 20: Lymph % (Auto) 32.0 % 04/27/22 20: [place] % (Auto) 6.2 % 04/27/22: Eos % (Auto) 2.1 % 04/27/22: Baso % (Auto) 0.4 % 04/27/22: Neut # (Auto) 8.12 10^3/uL (1.8-7.7) H 04/27/22: Lymph # (Auto) 4.4 10^3/uL (0.8-4.8) 04/27/22 20: [place] # (Auto) 0.9 10^3/uL (0.2-0.9) 04/27/22: Eos # (Auto) 0.3 10^3/uL (0.0-0.8) 04/27/22: Baso # (Auto) 0.1 10^3/uL (0.0-0.1) 04/27/22: Nucleated RBC % (auto) 0 % 04/27/22: Nucleated RBCs # 0.0 /100WBC 04/27/22 20:29 Sodium 140 mmol/L (136-145) 04/27/22 20:29 Potassium 3.9 mmol/L (3.5-5.1) 04/27/22 20:29 Chloride 105 mmol/L (98-107) 04/27/22 20:29 Carbon Dioxide 24 mmol/L (22-29) 04/27/22 20:29 Anion Gap 14.9 (5-19) 04/27/22 20:29 BUN 11 mg/dL (6-20) 04/27/22 20:29 Creatinine 0.7 mg/dL (0.5-0.9) 04/27/22 20:29 GFR Calculation 94.7 mL/min (90-130) 04/27/22 20: Glucose 110 mg/dL (65-115) 04/27/22 20: Calculated Osmolality 290 mOsm/kg (285-295) 04/27/22 20: Calcium 9.4 mg/dL (8.5-10.5) 04/27/22 20:29 Total Bilirubin 0.3 mg/dL (0.15-1.2) 04/27/22 20:29 AST 12 U/L (0-32) 04/27/22 20:29 ALT 13 U/L (0-33) 04/27/22 20:29 Alkaline Phosphatase 84 U/L (35-105) 04/27/22 20:29 Troponin T Baseline 6 ng/L (0-10) 04/27/22 20:29 Troponin T 120 Minute 6.00 ng/L (0-10) 04/27/22 22:14 Delta Troponin T 0 ABS# (0-10) 04/27/22 22:14 Troponin T Hi Sens 6Hr 6.00 ng/L (0-10) 04/28/22 02:07 Troponin T Hi Sens 6Hr Delta 0 ng/L (0-12) 04/28/22 02:07 Total Protein 7.3 g/dL (6.6-8.7) 04/27/22 20: Albumin 4.0 g/dL (3.5-5.2) 04/27/22 20:29 Globulin 3.3 g/dL (1.3-4.6) 04/27/22 20:29 Lipase 35 U/L (13-60) 04/27/22 20:29 HCG, Qual Negative (Negative) 04/27/22 20:29 Urine Color Yellow (Yellow) 04/27/22 21:25 Urine Appearance Clear (CLEAR) 04/27/22 21:25 Urine pH 5 (5-7) 04/27/22 21:25 Ur Specific [place] 1.020 (1.005-1.030) 04/27/22 21:25 Urine Protein Neg (Negative) 04/27/22 21:25 Urine Glucose (UA) Norm (Normal) 04/27/22 21:25 Urine Ketones 1+ (Negative) H 04/27/22 21:25 Urine Blood Neg (Negative) 04/27/22 21:25 Urine Nitrate Negative (Negative) 04/27/22 21:25 Urine Bilirubin Neg (Negative) 04/27/22 21:25 Urine Urobilinogen Norm mg/dL (Negative) 04/27/22 21:25 Ur Leukocyte Esterase 1+ (Negative) H 04/27/22 21:25 Urine RBC 0-4 /hpf (0-2) H 04/27/22 21:25 Urine WBC 5-10 /hpf (0-5) H 04/27/22 21:25 Ur Squamous Epith Cells 5-10 /hpf (0-5) H 04/27/22 21:25 Amorphous Sediment Not Reportable 04/27/22 21:25 Urine Bacteria 1+ /hpf (NONE) H 04/27/22 21:25 Hyaline Casts 0-4 /lpf H 04/27/22 21:25 Procedures Performed Laparoscopic cholecystectomy Vitals Last Vital Signs Temp 97.9 F 04/28/22 16:13 Pulse 105 H 04/28/22 16:13 Resp 20 H 04/28/22 16:13 BP 185/81 04/28/22 16:13 Pulse Ox 92 04/28/22 16:13 O2 Del Method 04/28/22 16:13 O2 Flow Rate 10 04/28/22 11:45 Discharge Plan Discharge Patient Disposition: Home Condition: Stable Prescriptions: New hydrocodone-acetaminophen 7.5-325 mg tablet 1 tab PO Q6H PRN (Reason: pain) Qty: 20 0RF amoxicillin-pot clavulanate 875-125 mg tablet 1 tab PO BID Qty: 14 0RF Continued olmesartan 20 mg tablet 20 mg PO DAILY Ozempic 0.25 mg or 0.5 mg(2 mg/1.5 mL) pen injector 1 mg SUBCUT .weekly Discharge Orders: Discharge Order (Routine); Ordered 04/28/22 Ordered By: Melo Salinas Referrals: Melo Salinas DO [Physician] - 2 weeks Arvind Rogers MD [Primary Care Provider] - 4-7 days Discharge Diet: Advance as tolerated Discharge Activity: Resume usual activity Patient Instructions: Opioid Safety, Post Anesthesia Care, Pain Management Activity Restrictions/Additional Instructions: Do not soak incisions underwater for 2 weeks. Shower daily Discharge Attestations Time Spent in Discharge Care*: less than 30 min Quality Metrics Clinical Quality Measures [ No reported AMI, CVA or VTE this stay] Coding Level of Care Code Acute Code for g Fwd Diagnoses Cholecystitis K81.9
== END 2022-04-28 18:31 | disposition home or self-care (01) ==
LOC: ER 22:42 → MEDSURG 23:33
PROVIDERS: Admitting Provider Surgery; Emergency Provider Emergency Medicine; PCP Family Medicine; Visit Provider Surgery
PROC: 0FT44ZZ Resection of Gallbladder, Percutaneous Endoscopic Approach (ICD-10-PCS; CPT 47562; principal; 2022-04-28 10:00)
DX: K80.10 Calculus of gallbladder with chronic cholecystitis without obstruction (principal); I10 Essential (primary) hypertension; E66.01 Morbid (severe) obesity due to excess calories; Z68.42 Body mass index [BMI] 45.0-49.9, adult
CPT/HCPCS: 47562; 36415; 71045; 71275; 74177; 80053; 81001; 83690; 84484; 84703; 85025; 88304; 93005; 96365; 96375; 99285; G0378; J0131; J1100; J1170; J1200; J1885; J2405; J2543; J2704; J3010; J3490; J7030; Q9967

== ENCOUNTER 2022-05-10 13:53 | Outpatient (CLI) | payer OTHER, SELFPAY ==
--- NOTE | 2022-05-10 14:03 | USCV_ITS ---
Christiana Wilson Age: 37 Gender: F : 1985 Exam Date: 05/10/2022 14:33 Ordering Phys: Arvind Rogers MD Technologist: [place] [facility] [place]ication: localized swelling PROCEDURES: Venous duplex imaging was performed in only the right upper extremity. In addition, the basilic vein, cephalic vein, radial vein, and ulnar vein. FINDINGS: Evidence of acute occlusive superficial thrombophlebitis in the right basilic vein with abnormal flow dynamics. No additional DVT. CONCLUSIONS Right superficial thrombophlebitis, basilic vein. Dr. Mel Carballo DO (Electronically Signed) Final Date: 10 May 2022 16:25 S
== END 2022-05-10 13:54 | disposition home or self-care (01) ==
LOC: RAD 13:59
PROVIDERS: PCP Family Medicine; Visit Provider Family Medicine
DX: M79.89 Other specified soft tissue disorders (principal); I80.8 Phlebitis and thrombophlebitis of other sites
CPT/HCPCS: 93971

== ENCOUNTER 2023-02-16 13:33 | Outpatient (CLI) | payer OTHER, SELFPAY ==
[2023-02-16 14:26] LABS: Blood Urea Nitrogen 10 mg/dL (6-20); Calcium 9.1 mg/dL (8.5-10.5); Carbon Dioxide 23 mmol/L (22-29); Chloride 107 mmol/L (98-107); Glomerular Filtration Rate 94.7 mL/min (90-130); Glucose 96 mg/dL (65-115); Osmolality Calculated 287 mOsm/kg (285-295); Sodium 139 mmol/L (136-145)
== END 2023-02-16 13:34 | disposition home or self-care (01) ==
PROVIDERS: PCP Family Medicine; Visit Provider Family Medicine
DX: I10 Essential (primary) hypertension (principal)
CPT/HCPCS: 36415; 80048

== ENCOUNTER 2023-10-07 09:52 | Outpatient (CLI) | payer OTHER, SELFPAY ==
--- NOTE | 2023-10-07 09:56 | XRR_ITS ---
PROCEDURE INFORMATION: Exam: XR Left Elbow Exam date and time: 10/07/2023 10:07 AM Age: 38 years old Clinical indication: Left; Patient HX: Worsening elbow pain for 3 months no known injury; Additional info: Left elbow pain TECHNIQUE: Imaging protocol: Radiologic exam of the left elbow. Views: 3 or more views. COMPARISON: No relevant prior studies available. FINDINGS: Bones/joints: Normal. No fracture or dislocation. No acute osseous or joint abnormality. Soft tissues: Normal. XR/XR elbow LT min 3V* [id number] IMPRESSION: No acute findings.
== END 2023-10-07 09:53 | disposition home or self-care (01) ==
LOC: RAD 09:53
PROVIDERS: PCP Family Medicine; Visit Provider Family Medicine
DX: M25.522 Pain in left elbow (principal)
CPT/HCPCS: 73080

== ENCOUNTER → 2024-04-05 14:30 | Outpatient (BNVA) | payer OTHER, SELFPAY | PROVIDERS: PCP Family Medicine; Visit Provider Podiatrist Foot & Ankle Surgery | DX: M79.672 Pain in left foot (principal); M76.72 Peroneal tendinitis, left leg | CPT/HCPCS: 73630 ==

== ENCOUNTER → 2024-10-10 14:39 | Outpatient (BNVA) | payer OTHER, SELFPAY | PROVIDERS: PCP Family Medicine; Visit Provider Family Medicine | DX: Z80.3 Family history of malignant neoplasm of breast (principal) | CPT/HCPCS: 81162 ==

== ENCOUNTER 2024-10-17 07:50 | Outpatient (CLI) | payer OTHER, SELFPAY ==
--- NOTE | 2024-10-17 08:00 | MM_ITS ---
WS: [id number] BILATERAL SCREENING DIGITAL TOMOSYNTHESIS MAMMOGRAM WITH CAD HISTORY: breast cancer screening COMPARISON: 05/15/2020, 04/26/2018 and 05/14/2019 Bilateral CC and MLO views with tomosynthesis and synthetic mammography submitted. Computer aided detection analyzed. Breast composition: The breasts are almost entirely fatty. No suspicious masses, microcalcifications or architectural distortion. Long-term stability ovoid mass near 5:00 RIGHT breast measuring 13 x 10 x 15 mm. Masses at a middle depth. No associated calcifications. MM/MM [facility] tomosynthesis [id number] IMPRESSION: BI-RADS: 2 - Benign. FOLLOW UP: 1 Year Follow-up
== END 2024-10-17 07:51 | disposition home or self-care (01) ==
LOC: RAD 07:51
PROVIDERS: PCP Family Medicine; Visit Provider Family Medicine
DX: Z12.31 Encounter for screening mammogram for malignant neoplasm of breast (principal); Z80.3 Family history of malignant neoplasm of breast; R92.313 Mammographic fatty tissue density, bilateral breasts; N63.14 Unspecified lump in the right breast, lower inner quadrant
CPT/HCPCS: 77063; 77067